=== PATIENT | male | born 1970 | race Caucasian/White ===

== ENCOUNTER 2019-02-18 15:26 | Emergency (ER) | payer SELFPAY ==
[~2019-02-18] VITALS: Ht 180.3 cm; Wt 79.4 kg
[2019-02-18] MEDS ORDERED: IBUPROFEN 600 MG TABLET PO ONE ×2 (16:00)
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
[2019-02-18 18:16] VITALS: BP 128/65
--- NOTE | 2019-02-18 18:16 | NUR ---
Patient discharged to home in stable condition. Written and verbal after care instructions given. Patient verbalizes understanding of instruction.
== END 2019-02-18 18:16 | disposition home or self-care (01) ==
LOC: ER 15:29
DX: M54.5 Low back pain (principal); V49.49XA Driver injured in collision with other motor vehicles in traffic accident, initial encounter; Y93.89 Activity, other specified; Y92.488 Other paved roadways as the place of occurrence of the external cause; Y99.8 Other external cause status
CPT/HCPCS: 71045-TC; 72110-TC